=== PATIENT | female | born 1940 | race Caucasian/White ===

== ENCOUNTER 2023-12-24 18:22 | Emergency (ER) | payer MEDICARE ==
[~2023-12-24] VITALS: Ht 167.6 cm; Wt 93.0 kg
[2023-12-24 18:24] VITALS: BP 162/76; PULSE 71; RESP 16
== END 2023-12-24 22:28 | disposition home or self-care (01) ==
LOC: EDH 18:22
DX: M71.22 Synovial cyst of popliteal space [Baker], left knee (principal); M25.562 Pain in left knee; I10 Essential (primary) hypertension; M79.662 Pain in left lower leg; Z88.8 Allergy status to other drugs, medicaments and biological substances; Z95.2 Presence of prosthetic heart valve
CPT/HCPCS: 73590; 73610; 93971

== ENCOUNTER 2024-01-02 11:00 | Emergency (ER) | payer MEDICARE ==
[~2024-01-02] VITALS: Ht 170.2 cm; Wt 93.0 kg
[2024-01-02 12:01] VITALS: BP 171/82; PULSE 71; RESP 20
[2024-01-02] MEDS ORDERED: ACETAMINOPHEN 500 MG TABLET PO ONE (14:30)
== END 2024-01-02 19:31 | disposition left against medical advice (07) ==
LOC: EDH 11:00
DX: S20.211A Contusion of right front wall of thorax, initial encounter (principal); S40.021A Contusion of right upper arm, initial encounter; I10 Essential (primary) hypertension; Z86.73 Personal history of transient ischemic attack (TIA), and cerebral infarction without residual deficits; Z88.8 Allergy status to other drugs, medicaments and biological substances; Z95.2 Presence of prosthetic heart valve; W18.39XA Other fall on same level, initial encounter; Y93.89 Activity, other specified; Y92.89 Other specified places as the place of occurrence of the external cause; Y99.8 Other external cause status
CPT/HCPCS: 71100; 73060